=== PATIENT | male | born 1965 | race Caucasian/White ===

== ENCOUNTER 2021-04-19 10:30 | Day surgery (SDC) | payer BC ==
[~2021-04-19 10:30] MED LIST: Lactated Ringers 1,000 ML IV ONE; Lactated Ringers 1,000 ML IV SCH
[2021-04-19] MEDS ORDERED: DIPRIVAN 200 MG/20 ML IV ONE ×3 (14:14→14:54)
[2021-04-19] MEDS ORDERED: Versed 2 MG/2 ML Injection ONE (14:14)
[2021-04-19 16:41] VITALS: BP 129/79; PULSE 55; O2SAT 99
--- NOTE | 2021-04-20 14:03 | OP ---
PROCEDURE DATE/TIME: 04/19/2021 1418 PREOPERATIVE DIAGNOSES: 1) Upper abdominal pain, reflux. 2) History of colon polyps, due for colonic surveillance. POSTOPERATIVE DIAGNOSES: 1) Multiple colorectal polyps, tortuous colon, sigmoid diverticulosis with spasm. 2) Reflux esophagitis, minimal gastritis. PLAN: EGD in one year. Colonoscopy in three years. Recommend cholecystectomy. PROCEDURES: 1) EGD with biopsy. 2) Colonoscopy with hot snare polypectomy and cold forceps polypectomy x7. PROCEDURE PERFORMED BY: Dania Warner M.D. ANESTHESIA: MAC. ESTIMATED BLOOD LOSS: Minimal. COMPLICATIONS: None. SPECIMENS: 1) Sigmoid colon polyp. 2) Rectosigmoid colon polyp. 3) Rectal polyp. HISTORY: This is a gentleman who presents with upper abdominal pain, reflux and a history of colon polyps. He is here for EGD and colonoscopy. We did also repeat his right upper quadrant ultrasound and he has been recommended to also have his gallbladder removed based on his symptoms as well and he is considering this. On the day of the procedure, we discussed his laboratory studies as well which show a slightly elevated lipase level and I did discuss these findings with him as well as the remainder of his labs and that I do still recommend cholecystectomy and so he will think about this and we will discuss it further at follow up visit. The remainder of his H&P, consent were all reviewed with him and confirmed. All questions answered. The family is at bedside. DESCRIPTION OF PROCEDURE: He was then brought to the endoscopy suite, laid in the left lateral decubitus position. A complete time out performed. First, the scope was gently introduced into the mouth, oropharynx, down into the esophagus, stomach and the proximal duodenum to the level of approximately the second portion. The duodenum appears to be normal. The scope was withdrawn back into the antral region. There were two tiny sites of erythema less than 1 cm in size. These were very minimal, biopsied and sent to pathology to rule out Helicobacter pylori as well. Site hemostatic. On retroflex view the remainder of the stomach looked normal. I did not find any other significant findings throughout the stomach. The scope was withdrawn back to the gastroesophageal junction. His gastroesophageal junction is at about 41 cm. There is no significant hiatal hernia here. He has three columns all less than 1 cm which are consistent with reflux esophagitis. These were all carefully biopsied to rule out any underlying Villanueva's disease and these sites were hemostatic after biopsy. Good specimens obtained. We carefully withdrew the scope and the remainder of the esophagus is normal. The patient tolerated the procedure well. No immediate complications. He was then repositioned for colonoscopy. First, a rectal exam was done. Scope is then inserted and gently advanced to the level of the cecum. The patient did have a somewhat spasmodic sigmoid colon with diverticulosis, some mild edema throughout the sigmoid colon here and this was tortuous here as well as throughout the colon. I did use gentle abdominal pressure to help navigate the scope gently to the level of the cecum. In the cecum the appendiceal orifice and the ileocecal valve were identified. At first it looked like he may have had a polyp near the appendiceal orifice but then once the cecum was fully distended this completely disappeared. Please see the picture and so there are no polyps here. The scope is then carefully withdrawn taking a circumferential view. There was some liquid thick stool throughout the colon. I was able to irrigate the majority of this getting a satisfactory overall view. A very small lesion could be missed because the prep was not perfect but we irrigated it as best as we could. The scope was slowly removed identifying the following. There was one sigmoid colon polyp at 24 cm. It was about 8 to 10 mm in size. It was semi-pedunculated taken in entirety with a hot snare. There were also approximately seven small rectosigmoid polyps placed in two jars rectosigmoid and rectum". These were all approximately 1 to 2 mm in size and were all taken with cold forceps in entirety and sent to pathology. Outside of this the tortuosity, the sigmoid diverticulosis and the spasm, there were no other findings. The remainder of the mucosa looked very healthy. The rectum looked normal and then the scope was able to be withdrawn. The patient tolerated the procedure very well. There were no immediate complications. Plan for EGD for surveillance in three years. EGD to recheck the site of possible Villanueva's disease in approximately one year and then we will review the site of proximal Jarrell's esophagus at that time and then we will continue to work up his upper abdominal pain, his elevated lipase and recommend for gallbladder removal.
== END 2021-04-19 16:35 | disposition home or self-care (01) ==
LOC: SDC 10:30
PROVIDERS: ATTEND Surgery
DX: Z09 Encounter for follow-up examination after completed treatment for conditions other than malignant neoplasm (principal); Z86.010 Personal history of colon polyps; R10.10 Upper abdominal pain, unspecified; K21.00 Gastro-esophageal reflux disease with esophagitis, without bleeding; K29.70 Gastritis, unspecified, without bleeding; K63.5 Polyp of colon; K57.30 Diverticulosis of large intestine without perforation or abscess without bleeding
CPT/HCPCS: 88305; J2250; J2704